=== PATIENT | female | born 1940 | race Caucasian/White ===

== ENCOUNTER → 2017-07-27 | Outpatient (CLI) | payer MEDICARE, OTHER ==
--- NOTE | 2017-07-27 13:49 | NM ---
EXAMINATION TYPE: NM bone 3 phase DATE OF EXAM: 07/27/2017 COMPARISON: NONE HISTORY: M 86.8X8, R60.9, nonhealing wound right foot Triple phase bone scintigraphy was performed following the injection of26.9 mCi Tc 99m MDP. Immediat e images and 5.5 hours post injection images acquired. FINDINGS: There is abnormal increased blood flow and blood pool activity to the right forefoot medially, delaye d imaging shows some more focal uptake at the level of the first digit of the right foot. Uptake with in the midfoot bilaterally may be degenerative. Some mild increased uptake noted to the right leg as compared to left. IMPRESSION: Findings suggest osteomyelitis to the first digit of the right foot.
--- NOTE | 2017-07-28 08:16 | US ---
EXAMINATION TYPE: US venous doppler duplex LE DATE OF EXAM: 07/27/2017 9:04 AM COMPARISON: NONE CLINICAL HISTORY: M86.8X8 Osteomylitis,R60.9 Edema. Nonhealing wound right foot SIDE PERFORMED: Bilateral 1) Color flow is present and patency is documented in the following vessels. External Iliac Vein (EIV) Common Femoral Vein Deep Femoral Vein Femoral Vein Popliteal Vein Proximal Calf Veins - not well seen on left due to small caliber Patient states that Dr. Batista (vascular surgeon) told her years ago that the blood goes down on her left leg well but doesn't come up very well. 2) There is venous reflux noted at the following venous levels: Right Leg: none Left Leg: EIV, CFV, proximal FV, SSV At the left lower FV there appears to be some chronic DVT. There is flow in the vessel but the vesse l wall is thick and cannot be compressed. IMPRESSION: Venous reflux as noted above
== END | disposition home or self-care (01) ==
LOC: RADNMMAIN 07:07
PROVIDERS: ATTEND Internal Medicine Infectious Disease
DX: I87.2 Venous insufficiency (chronic) (peripheral) (principal); M86.8X8 Other osteomyelitis, other site
CPT/HCPCS: 93970; 78315; A9503

== ENCOUNTER 2017-08-03 11:01 | Day surgery (SDC) | payer MEDICARE, OTHER ==
[2017-07-29 15:20] VITALS: BMI 25.4
[~2017-08-03 11:01] MED LIST: cefTRIAXone 2 MG in SODIUM CHLORIDE 0.9% 50 ML IVPB SCH; cefTRIAXone IN SWFI 2,000 MG/20 ML SYRINGE IVP SCH
[2017-08-03 12:02] VITALS: PULSE 79; RESP 20; TEMP 97.8
[2017-08-03] MEDS ORDERED: LIDOCAINE 2% INJ 20 MG/ML SQ ONE (12:08)
--- NOTE | 2017-08-03 12:23 | IR ---
PICC LINE PLACEMENT: HISTORY: Infection requiring long-term antibiotic therapy PROCEDURE: Ultrasound and fluoroscopic guidance of PICC line placement. COMPLICATIONS: None ANESTHESIA: 1. 1% Lidocaine locally. FINDINGS/TECHNIQUE: The procedure was explained to the patient. The risks, complications, benefits and alternatives were discussed and any questions were answered. Informed consent was obtained. The patient was placed supine on the fluoroscopic table and prepped and draped in the usual sterile [facility] ion. Utilizing a 21 gauge needle and sonographic and fluoroscopic guidance, access in the vein was achieved and there is placement of a 0.018 guidewire. The vein is patent. A 4-F sheath was placed o lili the guidewire. The guidewire and dilator were removed and a 4-F. PICC line was placed through th e sheath with the tip at the level of the SVC. The sheath was removed, the catheter was flushed and sutured into position. The patient was stable throughout the procedure and remained stable upon disc harge from the Department of Radiology. The vein puncture was patent under ultrasound. A willingham scale image was obtained to document patency of the vein punctured. All elements of the maximal barrier technique were utilized. FLUOROSCOPY TIME: 0.1 minute, one image submitted IMPRESSION: Successful PICC line placement under ultrasound and fluoroscopic guidance.
[2017-08-03 13:51] VITALS: BP 172/82
== END 2017-08-03 13:00 | disposition home or self-care (01) ==
LOC: CATHCVL 11:01
PROVIDERS: ATTEND Radiology Diagnostic Radiology
DX: E11.69 Type 2 diabetes mellitus with other specified complication (principal)
CPT/HCPCS: 36569; 76937; 77001; C1751; C1769; J2001; J0696

== ENCOUNTER → 2019-01-10 | Outpatient (CLI) | payer MEDICARE ==
[2019-01-10 11:54] VITALS: BP 134/73; PULSE 50; RESP 16
--- NOTE | 2019-01-10 14:59 | P.PAINCN ---
History of Present Illness - Reason for Consult Consult date: 01/10/19 - History of Present Illness Consulting Physician: Jayesh Batista MD Requesting Physician: Dr. Mcrae Chief Complaint: Left buttock pain radiating down to the ankles HPI: This is a 78-year-old female with a complicated past medical history including a factor V Leiden deficiency on Xarelto, pacemaker who presents to our clinic for evaluation of her left buttock and ankle pain. This pain is extre racquel bothersome to her it worsens with activity and gets better with rest. She also has secondary pain complaint which is the right medial flank and the right buttock area. Of more concern is that she is having increasingly frequent falls and states that she's had about 6 falls in the past 3 years. She states that she has problems with balance. She states that she sometimes has numbness and tingling going down both arms when she extends her neck. She also has problems opening jars and buttoning her shirt. She has had multiple injuries including a whiplash injury. She has not had imaging of her neck yet. Home Pain Medications: Over the counter medications MAPS: Reviewed she is not on any narcotics Allergies: Latex, penicillins, nickel PMHx: Multiple comorbidities she is on blood thinners factor V Leiden deficiency and is pacemaker dependent PSHx: Reviewed in the EMR Social Hx: She does not abuse substances. Past Medical History Past Medical History: Atrial Fibrillation, Asthma, Blood Disorder, CVA/TIA, Diabetes Mellitus, Fibromyalgia, Hearing Disorder / Deafness, Hyperlipidemia, Osteoarthritis (OA), Skin Disorder, Sleep Apnea/CPAP/BIPAP, Thyroid Disorder Additional Past Medical History / Comment(s): RT FOOT WOUND. POSS TIA X1 IN PAST. DRY EYES. HIATAL HERNIA. TINNITUS. RT FOOT METAL D/T BUNION SURG, HAS AREA ON SKIN THAT OPENS OCC. NEUROPATHY HANDS, FEET. POS FACTOR 5 GENE. BOTH SON AND DAUGHTER POSITIVE, UNABLE TO USE CPAP., bulging disc. History of Any Multi-Drug Resistant Organisms: MRSA Year Discovered:: 07/04/17 MDRO Source:: RT FOOT WOUND Past Surgical History: Section, Cholecystectomy, Orthopedic Surgery, Pacemaker, Tonsillectomy, Tubal Ligation Additional Past Surgical History / Comment(s): D&C. RT BUNION SURG.03-15-15, HAS 3 SCREWS, HAD PORT A CATH IN PAST FOR WOUND RT FOOT, PACEMAKER IMPLANTED. KRISTINE CATARACT SX Past Anesthesia/Blood Transfusion Reactions: Motion Sickness Type of Cardiac Device: Permanent Pacemaker Device Placement Date:: 2015 Past Psychological History: Anxiety Additional Psychological History / Comment(s): OCC. Smoking Status: Never smoker Past Alcohol Use History: Rare Past Drug Use History: None Reported - Past Family History Daughter(s) Family Medical History: Blood Disorder Additional Family Medical History / Comment(s): FACTOR 5 Son(s) Family Medical History: Blood Disorder Additional Family Medical History / Comment(s): FACTOR 5 Father Sister(s) Family Medical History: Deep Vein Thrombosis (DVT) Medications and Allergies Home Medications Medication Instructions Recorded Confirmed Type Atorvastatin [Lipitor] 20 mg PO HS 03/12/15 01/07/19 History Celecoxib [CeleBREX] 200 mg PO DAILY 03/12/15 01/07/19 History Cholecalciferol [Vitamin D3 (25 6,000 unit PO DAILY 03/12/15 01/07/19 History Mcg = 1000 Iu)] Cyanocobalamin [Vitamin B-12] 250 mcg PO DAILY 03/12/15 01/07/19 History Furosemide [Lasix] 20 mg PO DAILY 03/12/15 01/07/19 History Gabapentin [Neurontin] 200 mg PO HS 03/12/15 01/07/19 History Levothyroxine Sodium [Synthroid] 112 mcg PO DAILY 03/12/15 01/07/19 History Repaglinide [Prandin] 2 mg PO QID 03/12/15 01/07/19 History Sertraline [Zoloft] 50 mg PO DAILY PRN 03/12/15 01/07/19 History Zolpidem [Ambien] 0.5 tab PO HS 03/12/15 01/07/19 History cycloSPORINE [Restasis] 1 applicator BOTH EYES BID 03/12/15 01/07/19 History sitaGLIPtin PHOS/metFORMIN HCL 1 each PO BID 03/12/15 01/07/19 History [Janumet 50-500 mg Tablet] Rivaroxaban [Xarelto] 20 mg PO AC-SUPPER 07/20/17 01/07/19 History Biotin 5 mg PO DAILY 07/29/17 01/07/19 History ALPRAZolam [Xanax] 0.25 mg PO DAILY PRN #45 tab 09/08/17 01/07/19 Rx Fluticasone/Umeclidin/Vilanter 1 inhalation INHALATION DAILY 01/07/19 01/07/19 History [Bret Garcia 100-62.5-25] Allergies Allergy/AdvReac Type Severity Reaction Status Date / Time latex Allergy MOUTH Verified 01/10/19 11:32 SORENESS, POSSIBLE SWELLING LIPS Penicillins Allergy Rash/Hives Verified 01/10/19 11:32 nickel AdvReac Itching Verified 01/10/19 11:32 Physical Exam Vitals: Vital Signs Pulse Resp BP Pulse Ox 01/10/19 11:34 50 L 16 134/73 97 Vital Signs: Reviewed in EMR GENERAL: Well appearing, in no acute distress, sitting down PSYCH: Mood and affect is appropriate. Awake, alert, and oriented SKIN: Skin color, texture, turgor normal, no rashes or lesions HEENT: Normocephalic, atraumatic. EOM intact CV: No pedal edema RESP: Respirations are unlabored, no audible wheezing GI: Abdomen non-distended MUSCULOSKELETAL: Bilateral upper and lower extremity strength is normal and symmetric. No atrophy or tone abnormalities are noted. Neck: Cervical range of motion slightly limited. Spurling's test did result in some tingling in her fingers. Lumbar spine: Positive pain to palpation over the lumbar spine and paraspinous muscles. Facet of for pain with facet loading and back extension/rotation. Limited lumbar flexion, extension due to pain. Extremities: Peripheral joint ROM is full and pain free without obvious instability or laxity in all four extremities. No edema or skin discolorations noted. NEUR: Bilateral upper and lower extremity coordination and muscle stretch reflexes are physiologic and symmetric. No loss of sensation is noted. Cranial nerves are grossly intact. Assessment and Plan Assessment: This is a 78-year-old female on blood thinners for factor V Leiden deficiency and pacemaker dependence. She presents with primarily pain from her low back radiating down into her left leg. She also has some pain in her right medial thigh going to her right buttock. On her physical exam she does appear to have multiple components of pain. Given her leg pain her primary area pain may be related to spinal stenosis. This is confirmed by her MRI. However she does have signs of SI joint dysfunction as well as facetogenic pain. Of more concern is her recent falls and loss of balance. Furthermore she is having a hard time with opening jars and buttoning the upper shirts. She has not had imaging of her cervical spine. Her reflexes were normal. Thus I am concerned about cervical myelopathy. Assessment: 1. Spinal stenosis 2. Lumbar spondylosis 3. Cervicalgia, Plan: 1. Explanation: I explained to her the potential causes of pain. She is understanding of this. I will also explained to her why I want further imaging of the cervical spine 2. Opioid agreement: None 3. Counseling: She was counseled on stay active. 4. Procedures: We will perform a lumbar epidural steroid injection at L4-L5. 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 5. Consultations: She will see a spine surgeon for her neck after she gets a computed tomography scan of her neck 6. Investigations: To T7 cervical spine given her symptoms in her neck 7. Medications: None written 8. Disposition: We will see her for a lumbar epidural injection. She will also have a computed tomography scan of her neck and see a surgeon for concerns of cervical myelopathy. , PQRS Measure Charge Sheet PQRS Narrative: Smoking Status Never smoker Blood Pressure 134/73 Pain Intensity [Left Buttock] 10 Pain Intensity [Right Medial 8 Flank] Scale Used Numeric (1 - 10) Hx Alcohol Use (MH) No Home Medications: Ambulatory Orders Atorvastatin [Lipitor] 20 mg PO HS 03/12/15 Celecoxib [CeleBREX] 200 mg PO DAILY 03/12/15 Cholecalciferol [Vitamin D3 (25 Mcg = 1000 Iu)] 6,000 unit PO DAILY 03/12/15 Cyanocobalamin [Vitamin B-12] 250 mcg PO DAILY 03/12/15 Furosemide [Lasix] 20 mg PO DAILY 03/12/15 Gabapentin [Neurontin] 200 mg PO HS 03/12/15 Levothyroxine Sodium [Synthroid] 112 mcg PO DAILY 03/12/15 Repaglinide [Prandin] 2 mg PO QID 03/12/15 Sertraline [Zoloft] 50 mg PO DAILY PRN 03/12/15 Zolpidem [Ambien] 0.5 tab PO HS 03/12/15 cycloSPORINE [Restasis] 1 applicator BOTH EYES BID 03/12/15 sitaGLIPtin PHOS/metFORMIN HCL [Janumet 50-500 mg Tablet] 1 each PO BID 10/19/15 Rivaroxaban [Xarelto] 20 mg PO AC-SUPPER 07/20/17 Biotin 5 mg PO DAILY 07/29/17 ALPRAZolam [Xanax] 0.25 mg PO DAILY PRN #45 tab 09/08/17 Fluticasone/Umeclidin/Vilanter [Trelegy Ellipta 100-62.5-25] 1 inhalation INHALATION DAILY 01/07/19
== END ==
LOC: PNWHC3 11:18
PROVIDERS: ATTEND Student in an Organized Health Care Education/Training Program
DX: M48.061 Spinal stenosis, lumbar region without neurogenic claudication (principal); M47.816 Spondylosis without myelopathy or radiculopathy, lumbar region; M54.2 Cervicalgia; E11.9 Type 2 diabetes mellitus without complications; E78.5 Hyperlipidemia, unspecified; I48.91 Unspecified atrial fibrillation; J45.909 Unspecified asthma, uncomplicated; Z79.899 Other long term (current) drug therapy; Z91.040 Latex allergy status; Z88.0 Allergy status to penicillin; Z79.84 Long term (current) use of oral hypoglycemic drugs
CPT/HCPCS: 99211